=== PATIENT | female | born 1955 | race African-American/Black ===

== ENCOUNTER → 2016-10-02 | Outpatient (CLI) | payer OTHER ==
[~2016-10-02] MED LIST: AMLO5TAB2 PO; ASPI-650 PO; ASPI325T80 PO; CELE50CA PO; DIAZ10TA PO; FERR325T20 PO; FURO20TA3 PO; GUAI600T22 PO; HYDR-3138 PO; HYDR200T5 PO; IBUP200T64 PO; LABE100T3 PO; LISI-167 PO; MULT-516 PO; NAPR1TAB25 PO; NYST15CR2 TP; OMEP-110 PO; OXYC-229 PO; OXYC5TAB3 PO; POTA20TA14 PO; PRED10TA PO; SULF1TAB24 PO; TRI-FLEX PO
== END | disposition home or self-care (01) ==
LOC: CFH 15:55
PROVIDERS: ATTEND Internal Medicine
DX: J43.8 Other emphysema (principal); J47.9 Bronchiectasis, uncomplicated; I70.0 Atherosclerosis of aorta; R59.0 Localized enlarged lymph nodes; N28.1 Cyst of kidney, acquired; K76.89 Other specified diseases of liver
CPT/HCPCS: 71250